=== PATIENT | male | born 1980 | race Caucasian/White ===

== ENCOUNTER 2025-06-06 17:21 | Emergency (ER) | payer OTHER, SELFPAY ==
[2025-06-06 17:27] VITALS: PULSE 83; RESP 19; TEMP 35.9; O2SAT 96; BMI 27.3
[2025-06-06] MEDS: TET,DIPH,PERTUSS(ACELL),VAC/PF 0.5 ML SYRINGE IM (21:21)
[2025-06-06] MEDS: BACITRACIN OINT 0.9 GM PCKT 1 APPLIC TOP (22:04)
--- NOTE | 2025-06-06 22:13 | ED.GENADULT ---
HPI - General Adult General Chief complaint: Extremity Injury, Upper Stated complaint: Rt Pinky lacertation Time Seen by Provider: 06/06/25 21:10 Source: patient Mode of arrival: Ambulatory History of Present Illness HPI narrative: Otherwise healthy 45-year-old gentleman was working in the kitchen, cutting board slipped he went to catch the knife and sustained laceration on the inner portion across the PIP fold right small finger. Neurovascularly intact, bleeding has been controlled with direct pressure. No other injuries Related Data Allergies Allergy/AdvReac Type Severity Reaction Status Date / Time No Known Drug Allergies Allergy Verified 06/06/25 17:28 Review of Systems Review of Systems Narrative: Pertinent positive and negative findings as per HPI Patient History tobacco type: smokeless tobacco Exam Initial Vital Signs Initial Vital Signs: Vital Signs Temperature 96.7 F L 06/06/25 17:27 Pulse Rate 83 06/06/25 17:27 Respiratory Rate 19 06/06/25 17:27 Pulse Oximetry 96 06/06/25 17:27 Oxygen Delivery Method Room Air 06/06/25 17:27 General: Alert appropriate in no acute distress Respiratory: Able to speak in full sentences, no obvious respiratory distress Skin: No obvious rashes, warm and dry Neurologic: Grossly intact no obvious asymmetries or abnormalities Psych: appropriate insight and affect, cooperative Extremity: 3 cm simple laceration that does not involve tendons, does not get into the joint and not deep enough to injure bone on the palmar surface right small finger Procedures Laceration Repair Right small finger: Time of procedure: 22:15 Site: hand Side (If applicable): right Size (cm): 2 Description: linear Depth: simple, single layer Local Anesthetic: lidocaine 1% Amount of anesthesia used (mL): 2 Pre-repair: wound explored and deep structures intact Skin layer closed with: nylon Skin layer suture size: 4-0 Number of sutures: 3 Technique: simple, interrupted Course Orders Ordered: Discontinued Medications Bacitracin (Bacitracin Oint 0.9 Gm Pckt) 1 applic TOP NOW ONE Stop: 06/06/25 22:03 Last Admin: 06/06/25 22:04 Dose: 1 applic Documented By: KELLY Diphtheria/Tetanus/Acell Pertussis (Tet,Diph,Pertuss(Acell),Vac/Pf 0.5 Ml Syringe) 0.5 ml IM .ONCE ONE Stop: 06/06/25 17:39 Last Admin: 06/06/25 21:21 Dose: 0.5 ml Documented By: KELLY Vital Signs Vital signs: Vital Signs - 8 hr 06/06/25 17:27 Temperature 96.7 F L Pulse Rate 83 Respiratory Rate 19 Pulse Oximetry 96 Oxygen Delivery Method Room Air Medical Decision Making MDM Narrative Medical decision making narrative: Otherwise healthy 45-year-old gentleman sustained a 2 cm simple laceration on the palmar surface right small finger going over the PIP crease but not into the joint. Repaired with 4-0 nylon, 3 sutures placed no complications. Reviewed with him anticipated course of recovery, reasons to return to the emergency department and recommended sutures out in 10 days on June 16. Questions are answered, there was no indication for additional imaging and he is safe for discharge Discharge Plan Departure Patient Disposition: Home Clinical Impression: Finger laceration Qualifiers: Encounter type: initial encounter Finger: little finger Damage to nail status: without damage Foreign body presence: without foreign body Laterality: right Qualified Code(s): S61.216A - Laceration without foreign body of right little finger without damage to nail, initial encounter Instructions: DI for Laceration Repair -- Finger Activity Restrictions/Additional Instructions: Thank you for coming in today This cut did need stitches 3 stitches were placed without any complication. The stitches will need to be removed on or about June 16. Please keep some antibiotic and a Band-Aid over the wound for the 1st 1-2 days. After that his keeping the wound covered with a dry Band-Aid we will be appropriate. If there was any signs of redness, drainage increasing pain smell or other changes this is not what would be expected in needs to be re-evaluated Stand Alone Forms: Patient Portal/API
== END 2025-06-06 22:28 | disposition home or self-care (01) ==
PROVIDERS: Emergency Provider Emergency Medicine
DX: S61.216A Laceration without foreign body of right little finger without damage to nail, initial encounter (principal); W26.0XXA Contact with knife, initial encounter; Z23 Encounter for immunization
CPT/HCPCS: 12001; 90471; 99283; 90715